=== PATIENT | female | born 1975 | race African-American/Black ===

== ENCOUNTER 2018-11-04 20:51 | Emergency (ER) | payer OTHER ==
[~2018-11-04] VITALS: Ht 167.6 cm; Wt 77.1 kg
[2018-11-04 21:17] VITALS: BP 120/86
== END 2018-11-04 21:47 | disposition home or self-care (01) ==
LOC: ER 20:58
DX: R05 Cough (principal); F10.10 Alcohol abuse, uncomplicated; Y90.9 Presence of alcohol in blood, level not specified